=== PATIENT | male | born 1990 | race Caucasian/White ===

== ENCOUNTER 2018-10-30 18:35 | Emergency (ER) | payer SELFPAY ==
[~2018-10-30] VITALS: Ht 180.3 cm; Wt 88.5 kg
[2018-10-30] MEDS ORDERED: SODIUM CHLORIDE 0.9% 1000ML 1,000 ML IV STA (19:40)
[2018-10-30 20:30] LABS: BILIRUBIN,URINE NEGATIVE (NEGATIVE); CLARITY,URINE CLEAR (CLEAR); COLOR,URINE YELLOW (YELLOW); KETONES,URINE NEGATIVE (NEGATIVE); LEUKOCYTE ESTERASE ,URINE NEGATIVE (NEGATIVE); NITRITE,URINE NEGATIVE (NEGATIVE); PROTEIN,URINE DIPSTICK NEGATIVE (NEGATIVE); URINE UROBILINOGEN 0.2 mg/dL (0.2 - 1)
[2018-10-30 21:31] LABS: BASOPHILS # (AUTO) 0.1 (0.0-0.1); BASOPHILS % 0.6 % (0.0-1.0); EOSINOPHILS # (AUTO) 0.1 (0.0-0.4); EOSINOPHILS % 0.9 % (0.0-6.0); HEMATOCRIT 44.2 % (38.2-49.6); HEMOGLOBIN 15.4 g/dL (14.0-18.0); LYMPHOCYTES # (AUTO) 4.2 (1.0-3.2); LYMPHOCYTES % 35.6 % (18.0-39.1); MEAN CORPUSCULAR HEMOGLOBIN 30.1 pg (28-32); MEAN CORPUSCULAR HGB CONC 34.8 g/dL (31-35); MEAN CORPUSCULAR VOLUME 86.5 fL (81-99); MONOCYTES # (AUTO) 1.6 (0.2-0.8); MONOCYTES % 13.3 % (4.4-11.3); NEUTROPHILS # (AUTO) 5.7 (2.1-6.9); NEUTROPHILS % 49.1 % (38.7-80.0); PLATELET COUNT 280 x10e3/uL (140-360); RED BLOOD COUNT 5.11 x10e6/uL (4.3-5.7); RED CELL DISTRIBUTION WIDTH 11.3 % (11.7-14.4)
--- NOTE | 2018-10-30 21:32 | Diagnostic Imaging Report ---
EXAM: US TESTICULAR DOPPLER LTD, US TESTICULAR INDICATION: Left testicular pain COMPARISON: None TECHNIQUE: Grayscale and color Doppler images of the testicles and scrotal contents were obtained. Duplex imaging was performed with spectral waveform analysis of the bilateral testicular arterial inflow and venous outflow. FINDINGS: RIGHT: The right testicle measures 3.9 x 2.2 x 3.5 cm. No testicular masses. Normal flow by color doppler and spectral waveform analysis. Normal appearance of the epididymis. Small hydrocele. LEFT: The left testicle measures 4.8 x 2.6 x 3 cm. No testicular masses. Normal flow by color doppler and spectral waveform analysis. Normal appearance of the epididymis. Small hydrocele. IMPRESSION: 1. Normal sonographic appearance of the testicles. 2. No evidence of testicular torsion. 3. Small bilateral hydroceles. Signed by: Dr. Alesha Hicks M.D. on 10/30/2018 9:29 PM
[2018-10-30 21:39] LABS: INR 0.94; PROTHROMBIN TIME 13.4 seconds (11.9-14.5)
[2018-10-30 21:40] LABS: PARTIAL THROMBOPLASTIN TIME 28.6 seconds (23.8-35.5)
[2018-10-30 21:46] LABS: ALANINE AMINOTRANSFERASE 22 IU/L (0-55); ALBUMIN 4.3 g/dL (3.5-5.0); ALBUMIN/GLOBULIN RATIO 1.3 (0.8-2.0); ALKALINE PHOSPHATASE 62 IU/L (40-150); ANION GAP 12.9 mmol/L (8-16); BLOOD UREA NITROGEN 14 mg/dL (7-26); BUN/CREATININE RATIO 15 (6-25); CALCIUM 9.6 mg/dL (8.4-10.2); CARBON DIOXIDE 26 mmol/L (22-29); CHLORIDE 102 mmol/L (98-107); CREATININE, SERUM 0.96 mg/dL (0.72-1.25); EST GLOMERULAR FILTRATION RATE > 60 ML/MIN (60-); GLUCOSE 85 mg/dL (74-118); POTASSIUM 3.9 mmol/L (3.5-5.1); SODIUM 137 mmol/L (136-145)
[2018-10-30] MEDS ORDERED: IOPAMIDOL 370 MG/ML 200 ML INFUS..BTL INJ ONE (22:15)
[2018-10-30] MEDS ORDERED: SODIUM CHLORIDE 0.9% 50ML 50 ML ONE (22:15)
--- NOTE | 2018-10-30 23:04 | Diagnostic Imaging Report ---
EXAM: CT ABDOMEN AND PELVIS with IV CONTRAST DATE: 10/30/2018 7:40 PM Time stamp on Exam: 2230 hours INDICATION: Left lower quadrant, left inguinal, left testicular pain COMPARISON: Testicular ultrasound October 30, 2018 TECHNIQUE: The abdomen and pelvis were scanned using a multidetector helical scanner. Coronal and sagittal reformations were obtained. Dose modulation, iterative reconstruction, and/or weight based adjustment of the mA/kV was utilized to reduce the radiation dose to as low as reasonably achievable. Routine protocol performed. IV Contrast: 100 cc Isovue-370 Oral Contrast: Water FINDINGS: LOWER THORAX: No consolidations LIVER: No masses BILIARY: The gallbladder is unremarkable. No ductal dilation. SPLEEN: No masses PANCREAS: No masses ADRENALS: No nodules KIDNEYS: Symmetric perfusion. No enhancing masses. No hydronephrosis. GI TRACT: No distention, wall thickening or evidence of obstruction. Normal appendix. VESSELS: Unremarkable PERITONEUM/RETROPERITONEUM: No free air or fluid LYMPH NODES: No lymphadenopathy REPRODUCTIVE ORGANS: Unremarkable BLADDER: Unremarkable SOFT TISSUES: Unremarkable BONES: No suspicious bone lesions. IMPRESSION: Normal CT of the abdomen and pelvis. No CT findings to explain patient's symptoms. No left inguinal hernia. Signed by: Dr. Alesha Hicks M.D. on 10/30/2018 11:00 PM
[2018-10-31] MEDS ORDERED: AZITHROMYCIN 250 MG TAB PO ONE
[2018-10-31] MEDS ORDERED: CEFTRIAXONE SOD 250 MG VIAL IM ONE
[2018-10-31 00:28] VITALS: BP 127/67
== END 2018-10-31 00:39 | disposition home or self-care (01) ==
LOC: ER 18:35
DX: N50.812 Left testicular pain (principal); N43.3 Hydrocele, unspecified; N45.2 Orchitis
CPT/HCPCS: 36415; 74177; 76870; 80053; 81001; 85025; 85610; 85730; 87086; 93976; 99284; J0696; J7030; Q9967